=== PATIENT | female | born 1980 | race Caucasian/White ===

== ENCOUNTER 2018-09-19 20:07 | Emergency (ER) | payer SELFPAY ==
[~2018-09-19] VITALS: Ht 152.4 cm; Wt 59.1 kg
[2018-09-19 20:12] VITALS: BP 118/76
[2018-09-19] MEDS ORDERED: LIDOCAINE 5% TRANSDERMAL PATCH TD ONE (21:15)
[2018-09-19] MEDS ORDERED: KETOROLAC TROMETHAMINE 30 MG/ML VIAL IM ONE (21:15)
== END 2018-09-19 21:54 | disposition home or self-care (01) ==
LOC: EMS 20:09
DX: S16.1XXA Strain of muscle, fascia and tendon at neck level, initial encounter (principal); V49.49XA Driver injured in collision with other motor vehicles in traffic accident, initial encounter; Y93.89 Activity, other specified; Y92.89 Other specified places as the place of occurrence of the external cause; Y99.8 Other external cause status
CPT/HCPCS: 96372; 99283; J1885